=== PATIENT | male | born 1950 | race African-American/Black ===

== ENCOUNTER 2016-06-09 09:45 | Outpatient (CLI) | payer OTHER ==
[2016-06-09 11:02] LABS: Bilirubin Negative (Negative); Blood, Urine Negative (Negative); Glucose, Urine (Dipstick) Negative (Negative); Ketone, Urine Negative (Negative); Nitrite Negative (Negative); Protein, Urine (Dipstick) Negative (Neg-Trace); Urobilinogen 0.2 mg/dL (0.2-1.0)
[2016-06-09 11:05] LABS: #Eosinphils 0.1 thou/uL (0.0-0.7); #Lymphocytes 1.4 thou/uL (1.20-3.40); #Monocytes 0.3 thou/uL (0.11-0.59); #Neutrophils 2.6 thou/uL (1.40-6.50); %Basophils 1.1 % (0.0-1.0); %Lymphocytes 31.4 % (21.0-51.0); %Monocytes 6.9 % (0.0-10.0); Hematocrit 45.5 % (42.0-52.0); Mean Platelet Volume 6.7 fL (7.4-10.4); Red Blood Cell (RBC) Count 5.19 mill/uL (4.70-6.10); White Blood Cell (WBC) Count 4.4 thou/uL (4.8-10.8)
[2016-06-09 11:11] LABS: Bacteria/HPF None Seen HPF (None Seen); RBC/HPF None Seen HPF (0-3); Squamous Epithelial 0-3 HPF (0-3); WBC/HPF None Seen HPF (0-3)
[2016-06-09 11:19] LABS: ALT (SGPT) 14 U/L (0-55); AST (SGOT) 19 U/L (5-34); Alkaline Phosphatase 91 U/L (40-150); Anion Gap 12 mmol/L (10-20); BUN (Urea Nitrogen) 18 mg/dL (8.4-25.7); Bilirubin, Direct 0.1 mg/dL (0.1-0.3); Bilirubin, Total 0.4 mg/dL (0.2-1.2); Calc. Creatinine Clearance 0 mL/min (70-130); Calcium 9.7 mg/dL (7.8-10.44); Carbon Dioxide 25 mmol/L (23-31); Chloride 109 mmol/L (98-107); Estimated GFR-MDRD Greater than 90; Globulin 3.1 g/dL (2.4-3.5); LDL Cholesterol, Calculated 144 mg/dL; Protein, Total 7.3 g/dL (5.8-8.1)
== END 2016-06-09 09:46 | disposition home or self-care (01) ==
LOC: NAV LAB 09:45
PROVIDERS: ATTEND Internal Medicine
DX: Z00.00 Encounter for general adult medical examination without abnormal findings (principal); R53.83 Other fatigue
CPT/HCPCS: 36415; 80053; 80061; 81001; 82248; 85025

== ENCOUNTER 2016-06-18 08:46 | Outpatient (CLI) | payer OTHER | END 2016-06-18 08:47 | disposition home or self-care (01) | LOC: NAV LAB 08:46 | PROVIDERS: ATTEND Internal Medicine | DX: Z72.89 Other problems related to lifestyle (principal) | CPT/HCPCS: 86803; G0103 ==